=== PATIENT | male | born 1950 | race African-American/Black ===

== ENCOUNTER 2019-04-01 12:24 | Inpatient (IN) | payer OTHER, SELFPAY ==
[2019-04-01] VITALS (9 sets, daily range): BP systolic 168–241; BP diastolic 68–111; PULSE 52–85; RESP 15–20; TEMP 36.6–37.7; O2SAT 99–100; BMI 25.2
--- NOTE | ~2019-04-01 | US_ITS ---
EXAMINATION: US carotid duplex BI DATE: 04/02/2019 08:22 INDICATION: Vertigo. Possible seizure 2 weeks ago. Old posterior left parietal occipital infarct on C T examination. TECHNIQUE: Grayscale, color Doppler, and pulsed Doppler images of the cervical carotid arteries were obtained. The degree of vessel stenosis is placed in one of the following categories: normal, <50%, 5 0-69%, >=70% but less than near-occlusion, near-occlusion, or total occlusion. Note that percent sten osis relative to normal distal artery lumen diameter is indirectly measured from velocity measurement s as described by Zak, et al. Radiology 2003; [id number]:[id number]. COMPARISON: None. FINDINGS: RIGHT: The right common carotid artery (CCA) peak systolic velocity (PSV) is 111.3 cm/s. The right internal carotid artery (ICA) PSV is 102.8 cm/s. The right ICA end-diastolic velocity (EDV) is 34.2 cm/s. The right ICA/CCA PSV ratio is 0.9. Grayscale and color Doppler images yield an estimate of 0% diameter r eduction from plaque in the ICA. The external carotid artery (ECA) PSV is 107.6 cm/s. There is antegr haroon flow in the right vertebral artery. LEFT: The left CCA PSV is 116.1 cm/s. The left ICA PSV is 76.7 cm/s. The left ICA EDV is 20.6 cm/s. The lef t ICA/CCA PSV ratio is 0.7. Grayscale and color Doppler images yield an estimate of 0% diameter reduc tion from plaque in the ICA. The ECA PSV is 114.3 cm/s. There is antegrade flow in the left vertebral artery. IMPRESSION: 1. No stenosis in the right internal carotid artery. 2. No stenosis in the left internal carotid artery. Reviewed, dictated and finalized at [facility]. Reviewed, dictated and finalized at location [facility]. TH CARE LIAISON
--- NOTE | ~2019-04-01 | CT_ITS ---
EXAMINATION: CT brain wo con DATE: 04/01/2019 13:12 INDICATION: Recent syncope or seizure. Severe hypertension. TECHNIQUE: Computed tomography (CT) of the head was performed without intravenous contrast. The mA wa s adjusted according to patient size. Iterative reconstruction technique was employed. Exam dose: 60 5.33 mGy-cm total exam DLP. COMPARISON: None FINDINGS: There is focal encephalomalacia in the posterior left parietal-occipital area, likely due t o old infarct. There is nonspecific patchy diminished attenuation of the subcortical and periventricular cerebral wh ite matter, likely due to chronic small vessel ischemic changes. Bilateral carotid siphon internal ca rotid artery calcifications are present. No intracranial mass lesion or hemorrhage or recent cerebrovascular accident is evident. No midline s hifts or mass effects. No subdural or epidural hematoma. The orbits are unremarkable except for evidence of an old blowout fracture of the medial wall of the left orbit. There is patchy opacification right ethmoid air cells. The included paranasal sinuses and the mastoid air cells are otherwise unremarkable. No fracture or bone destruction of the cranial vault.. 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 Reviewed, dictated and finalized at [facility]. Reviewed, dictated and finalized at location [facility]. ASSEMBLY WORKER IMPRESSION: Old posterior left parietal occipital infarct Chronic small vessel ischemic changes of the cerebral white matter, cerebral at herosclerosis.
--- NOTE | ~2019-04-01 | US_ITS ---
EXAMINATION: US retroperitoneal duplex ltd EXAM DATE: 04/04/2019 09:57 INDICATION: Uncontrolled hypertension. TECHNIQUE: Multiple grayscale and Doppler images of the kidneys and renal arteries were obtained. T here is no prior study for comparison. FINDINGS: Right kidney measures 10.4 x 5.5 x 5.9 cm, the left measuring 10.7 x 5.4 x 7.1. No hydronep hrosis. The aorta peak systolic velocity is 127 cm/s. The right renal artery peak systolic velocity is 102 cm /s in the proximal segment, 89 cm/s in the mid segment, and 51 cm/s in the distal segment. The left r enal artery peak systolic velocity is 94 cm/s in the proximal segment, 108 cm/s in the mid segment, a nd 93 cm/s in the distal segment. IMPRESSION: 1. Renal artery Doppler velocities within normal limits. Reviewed, dictated and finalized at location [facility]. MANAGEMENT DIRECTOR
--- NOTE | ~2019-04-01 | XR_ITS ---
XR chest 2V DATE: 04/01/2019 13:15 INDICATION: Dizziness. Hypertension. Weight loss. TECHNIQUE: PA and lateral views COMPARISON: None FINDINGS: Normal heart size. There is aortic calcification and mild unfolding. No hilar or mediastina l enlargement. No pulmonary infiltrate or consolidation, pleural effusion or pulmonary vascular congestion or pneumo thorax. Diffuse idiopathic skeletal hyperostosis of the thoracic spine. IMPRESSION: No active cardiopulmonary disease Aortic atherosclerosis Reviewed, dictated and finalized at location [facility]. ER ROLLER GRINDER OPERATOR
--- NOTE | ~2019-04-01 | MR_ITS ---
EXAMINATION: MR brain/brain stem wo/w con DATE: 04/02/2019 08:13 INDICATION: Vertigo. Chronic stroke. Seizure 2 weeks prior. TECHNIQUE: Magnetic resonance imaging (MRI) of the brain and brainstem was performed without and with 15 mL Multihance intravenous contrast. Sequences included sagittal and axial T1-weighted SE, axial d iffusion-weighted FS SE, axial T2*-weighted GRE, axial T2-weighted FLAIR, and axial T2-weighted FSE. Postcontrast axial and coronal T1-weighted SE was obtained. Apparent diffusion coefficient (ADC) maps were created. COMPARISON: CT dated 04/01/2019 FINDINGS: There are no areas of restricted diffusion to suggest acute infarction. Small to moderate sized regio n of encephalomalacia in the left parieto-occipital region consistent with chronic infarct. Small old lacunar infarcts at the left side of the caron and a couple in the left frontal lobe white matter. No intracranial hemorrhage or abnormal intracranial mass lesion. There are scattered areas of nonspecif ic increased T2-weighted signal intensity in the cerebral white matter, predominantly involving the d eep and periventricular white matter. There are no intraparenchymal signal abnormalities seen on the other pulse sequences. The ventricles are symmetric and normal in size. There are no abnormal extra-a xial fluid collections. Flow voids are seen in the cerebral arteries on the T2-weighted sequences con sistent with their expected patency. Prominent mucosal thickening in the right ethmoid sinuses. Mild mucosal thickening in the left maxillary sinus. Visualized orbits and soft tissues are unremarkable. There are no areas of abnormal enhancement on the post contrast images. IMPRESSION: 1. No acute intracranial process. 2. Small to moderate-sized chronic infarct in the left parieto-occipital region. 2. Three smaller old lacunar infarcts, one in the left caron and 2 in the left frontal white matter. 3. Mild to moderate scattered periventricular predominant white matter T2 hyperintensity consistent w ith chronic small vessel ischemic disease. Reviewed, dictated and finalized at location [facility]. AND STEEL WORK SUPERVISOR IMPRESSION: 1. No acute intracranial process. 2. Small to moderate-sized chronic infarct in the left parieto-occipital region . 2. Three smaller old lacunar infarcts, one in the left caron and 2 in the left f rontal white matter. 3. Mild to moderate scattered periventricular predominant white matter T2 hyper intensity consistent with chronic small vessel ischemic disease.
--- NOTE | 2019-04-01 12:37 | ED.DIZZY ---
HPI - Dizziness General Chief Complaint: Dizziness Stated Complaint: dizziness Time Seen by Provider: 04/01/19 12:37 Source: patient, family and RN notes reviewed Mode of arrival: other Limitations: other (poor historian) History of Present Illness HPI Narrative: Pt is a 68 y/o male who presents to the ED with c/o mild intermittent dizziness that began a few weeks ago. Pt's family reports the pt had two possible seizures two weeks ago. Pt's family notes that EMS arrived to the scene, but did not take him because he was responsive. Pt lives by himself so the episodes were not witnessed. Pt is unable to recall the episodes. He notes that he has not seen his PCP in over a year. Pt also reports a HILLS, recent weight loss, and weakness in his RUE, but denies a cough, SOB, CP, numbness, ABD pain, diarrhea, poor appetite, dysuria, generalized swelling, an unsteady gait, and changes in his vision. HPI is limited due to pt being a poor historian. MD elicited complaint: dizziness Onset (ago): week(s) (2) Timing: intermittent Severity: mild Associated symptoms: other (headache, recent weight loss) Associated neuro symptoms: limb weakness (RUE) and other (possible seizures) Related Data Home Medications Medication Instructions Recorded Confirmed No Home Medications 04/01/19 04/01/19 Allergies Allergy/AdvReac Type Severity Reaction Status Date / Time No Known Allergies Allergy Verified 04/01/19 12:33 Review of Systems Review of Systems: ROS unobtainable: other (limited due to being being a poor historian) Constitutional: Constitutional: Denies poor appetite and Reports weight loss (recent) Eyes: Eyes: Denies change in vision Cardiovascular: Cardiovascular: Denies chest pain and Denies edema Respiratory: Respiratory: Denies cough and Denies dyspnea Gastrointestinal: Gastrointestinal: Denies abdominal pain and Denies diarrhea Genitourinary: Genitourinary: Denies dysuria Neurologic: Reports dizziness (intermittent), Reports headache(s), Denies numbness, Reports seizure-like activity (possible), Reports weakness (in his RUE) and Denies other (an unsteady gait) PMF Past Medical History Medical History (Updated 04/01/19 @ 15:23 by Shahriar Greenwood MD) Medical history unknown Surgical History Surgical History (Updated 04/01/19 @ 12:54 by Belle Malone) Surgical history unknown Social History Social History (Updated 04/01/19 @ 12:54 by Belle Malone) Smoking status: Never smoker Alcohol intake: current Substance use: current Substance use type: marijuana Other substance usage details: Pt notes that he smokes Marijuana every other day. Gender identity (if verbalized by the patient): Male Exam Const: General: healthy appearing, no acute distress and well developed Nutritional Appearance: well nourished Orientation/consciousness: patient oriented x3 (alert) and Other orientation findings (Alert) Limitations: no limitations HENMT: Head: normocephalic and atraumatic Ears: external ears normal General nose exam: No nasal discharge present and no epistaxis Face and sinus: face symmetric Mouth: Yes lip normal, Yes tongue normal and Yes moist mucous membranes Throat: other (No exudate, no erythema) Eyes: Conjunctivae: conjunctivae normal Sclera: sclerae normal EOM: EOMs intact bilaterally Direct Ophthalmoscopy: retinal abnormality bilateral (hypertensive changes) Neck: Neck: full ROM, no lymphadenopathy and supple Thyroid: thyroid normal Resp: Effort & Inspection: normal respiratory effort Auscultation: clear to auscultation bilaterally, no rales, no rhonchi, no wheezes and other (breath sounds equal) Cardio: Rate: regular rate Rhythm: regular rhythm Heart sounds: no gallops and no murmurs GI: Inspection: non-distended GI Palp: No abdominal tenderness and Yes Soft to palpation Auscultation: other (bowel sounds present) : General: Yes no CVA tenderness Back/Spine/Pelvis: Back: no CVA
--- NOTE | 2019-04-01 13:46 | ECG_ITS ---
Measurements Intervals [place] Rate: 55 P: 53 AL: 157 QRS: -8 QRSD: 98 T: 17 QT: 453 QTc: 436 Interpretive Statements SINUS BRADYCARDIA VOLTAGE CRITERIA FOR LVH NONSPECIFIC ST & T-WAVE ABNORMALITY- INF/LAT LEADS BASELINE WANDER- I, II, AVR, AVL, AVF BORDERLINE ECG Electronically Signed On 04-01-2019 19:01:47 MOBILE APPLICATION DEVELOPMENT LEAD by Dinesh Herrera D.O.
[2019-04-01 13:47] LABS: Basophils Percent Auto 0.6 % (0.2-1.2); Eosinophils Absolute Auto 0.1 K/mm3 (0-0.3); Hematocrit 34.1 % (42.0-52.0); Hemoglobin 10.8 g/dL (14.0-18.0); Immature Granulocyte Absolute 0.02 K/mm3 (0.00-0.031); Immature Granulocyte Percent A 0.3 % (0-0.5); Lymphocytes Absolute Auto 2.66 K/mm3 (0.9-3.2); Lymphocytes Percent Auto 39.4 % (18.3-44.2); Mean Corpuscular HGB Conc 31.7 g/dl (32-36); Mean Corpuscular Hemoglobin 21.7 pg (26-34); Mean Corpuscular Volume 68.5 fl (80-100); Mean Platelet Volume 10.4 fl (7.4-10.4); Monocytes Absolute Auto 0.6 K/mm3 (0.1-0.6); Monocytes Percent Auto 8.6 % (2.6-8.5); Neutrophils Absolute Auto 3.4 K/mm3 (1.3-6.7); Neutrophils Percent Auto 50.1 % (45.5-73.1); Platelet Count Result 295 k/mm3 (150-375); Red Blood Count 4.98 M/mm3 (4.6-6.20); Red Cell Distribution Width 16.2 % (11.5-14.5); White Blood Count 6.8 K/mm3 (4.5-10.0)
[2019-04-01] MEDS: SODIUM CHLORIDE 0.9% IV 1,000 ML 100 ML IV CONT (13:47)
[2019-04-01] MEDS: LABETALOL HCL INJ 100 MG/20 ML VIAL 20 MG IV PUSH (13:47)
[2019-04-01] MEDS: hydrALAZINE HCL 20 MG/ML VIAL IV PUSH (13:55)
[2019-04-01 13:59] LABS: Alanine Aminotransferase 13 U/L (4-50); Albumin Level 4.9 g/dL (3.5-5.1); Alkaline Phosphatase 66 U/L (38-126); Aspartate Amino Transferase 26 U/L (17-59); Bilirubin,Total 0.5 mg/dL (0.2-1.3); Blood Urea Nitrogen 14 mg/dL (9-20); Calcium 9.9 mg/dL (8.4-10.2); Carbon Dioxide 26 mmol/L (22-30); Chloride 99 mmol/L (98-107); Estimated Glomerular Filt Rate > 60; Glucose 75 mg/dL (75-110); Magnesium 2.2 mg/dL (1.6-2.3); Potassium 3.5 mmol/L (3.4-5.0); Sodium 142 mmol/L (137-145)
[2019-04-01 14:04] LABS: Add Urine Microscopic? YES; Amorphous Sediment Urine Few; Appearance Urine Cloudy (Clear); Bacteria Urine Trace /hpf; Bilirubin Urine Negative (Negative); Blood Urine 2+ (Negative); Color Urine Straw (Yellow); Glucose Urine UA Negative (Negative); Ketones Urine Negative (Negative); Leukocyte Esterase Ur 3+ LEU/UL (Negative); Mucus Urine Rare /lpf; Nitrate Urine Negative (Negative); Protein Urine Negative (Negative); Specific Grav Ur 1.003 (1.001-1.035); Urobilinogen Urine Negative mg/dL (<2.0); WBC Urine 31-50 /hpf
[2019-04-01 14:10] LABS: Troponin I 0.016 ng/mL (0.000-0.034)
--- NOTE | 2019-04-01 15:30 | PM.IMHP ---
H&P: HPI History of Present Illness Chief complaint: Intermittent headache and dizziness. Narrative: Nima Travis Jr. is a very pleasant 68-year-old male with a history of TIA many years ago who presented to the emergency department earlier this afternoon via private vehicle from home for evaluation of intermittent headache and dizziness for the past 3 weeks. He has not seen a physician for over a year and a half, and to his knowledge does not have any significant medical problems. It was his daughter that encouraged him to come in today for evaluation today given the constellation of findings that were concerning to her. For the last several weeks he has had intermittent right upper extremity numbness that is typically fleeting in nature, and is not associated with weakness. He has also had occasional diffuse headaches and mild vertigo. Additionally, a couple of weeks ago he was at a friend's house and she apparently witnessed him having 2 seizures, but that cannot be confirmed. The patient does not recall any details with regards to that and has no history of seizure disorder. Daughter is also concerned that the patient has loss obtain little over 20 pounds in the past 1 month, unintentionally. He has never had a colonoscopy and denies constipation and straining with bowel movements, but has noted a small amount of blood in his stool on occasion. To his knowledge she has never had an elevated PSA level. On arrival to the emergency department his blood pressure was 241/111 and besides a mild headache he had no symptoms with that. He specifically denies chest pain, shortness of breath, severe headache, and visual changes. No focal weakness or paresthesias at this time. No speech disturbances (patient has stuttered 4 years and this is unchanged) or facial asymmetry. He denies chest pain, palpitations, and racing heart. Review of Systems Review of Systems: Narrative: Twelve systems were reviewed with pertinent positives and negatives as per HPI. No fever, chills, or sweats. No acute auditory or visual changes. He denies neck ache. No recent cold or flu symptoms. He denies exertional chest pain shortness of breath. No nausea, vomiting, or diarrhea. No dysuria or hematuria. He does have symptoms of BPH including decreased stream and nocturia. Except as documented, all other systems were reviewed and are negative. 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 TIA (transient ischemic attack) Surgical History Surgical History (Updated 04/01/19 @ 18:56 by Zeina Flores PA-C) No significant past surgical history Family History Family History (Updated 04/01/19 @ 18:56 by Zeina Flores PA-C) Other Acute myocardial infarction Diabetes mellitus Heart disease Hypertension Social History Social History (Updated 04/01/19 @ 18:58 by Zeina Flores PA-C) Social History: The patient lives in [place], [place] with several family members. He has 5 children. he is retired and used to work at the [employer] and at this [employer]. He is very active, and enjoys walking which he does most days. He designates his daughter, Nando Fernandez, as his surrogate decision maker and he wishes to be a full code. He is a lifelong nonsmoker. He drinks alcohol socially and in moderation. He smokes marijuana several times a week. Spiritual care concerns: No Agree to blood products: Yes Meds Home Medications and Allergies Home Medications Medication Instructions Recorded Confirmed Type No Home Medications 04/01/19 04/01/19 History Allergies Allergy/AdvReac Type Severity Reaction Status Date / Time No Known Allergies Allergy Verified 04/01/19 12:33 Vital Signs Vital Signs - 24 hr 04/01/19 12:30 04/01/19 13:51 04/01/19 14:45 [place]
[2019-04-01] MEDS: AMLODIPINE BESYLATE 5 MG TABLET PO (15:39)
[2019-04-01] MEDS: hydrALAZINE HCL 20 MG/ML VIAL 10 MG IV PUSH ×2 (16:08→22:56)
--- NOTE | 2019-04-01 16:22 | ADMGEN ---
This patient, Nima Travis Jr., was admitted to 3 Med Surg Room 314-01. @ 1645 Patient/family oriented to hospital policies and general routines including ID bracelet, bed and alarms, visiting hours, pain management, procedures, bathroom and other care routines, personal items, smoking policy, room service/diet, and visiting hours. Valuables list has been completed. Information on how to activate the Rapid Response Team has been discussed. Patient/Family are encouraged to report perceived risks to care and to ask questions if they do not understand what they are told or what they should do.
[2019-04-01] MEDS: LACTATED RINGERS 1,000 ML 60 ML IV CONT (17:06)
[2019-04-01] MEDS: ACETAMINOPHEN 325 MG TABLET 650 MG PO (20:03)
[2019-04-01 20:27] LABS: Iron 52 ug/dL (49-181)
[2019-04-01 20:28] LABS: IFOB Positive Control Positive; Immunochemical Fecal Occult Bl Negative (N)
[2019-04-01 20:50] LABS: Percent Iron Saturation 18 % (20-50)
[2019-04-01 21:12] LABS: Prostate Specific Antigen 2.8 ng/mL (< OR = 4.0)
[2019-04-01 21:49] LABS: Folic Acid 7.5 ng/mL (2.76->20)
[2019-04-02] VITALS (14 sets, daily range): BP systolic 117–214; BP diastolic 56–92; PULSE 62–87; RESP 16–18; TEMP 36.7–37.5; O2SAT 97–100
[2019-04-02] MEDS: hydrALAZINE HCL 20 MG/ML VIAL 10 MG IV PUSH ×2 (06:02→12:05)
[2019-04-02] MEDS: ACETAMINOPHEN 325 MG TABLET 650 MG PO ×4 (06:04→20:48)
[2019-04-02 06:35] LABS: Hematocrit 30.3 % (42.0-52.0); Hemoglobin 9.6 g/dL (14.0-18.0); Mean Corpuscular HGB Conc 31.7 g/dl (32-36); Mean Corpuscular Hemoglobin 21.4 pg (26-34); Mean Corpuscular Volume 67.6 fl (80-100); Mean Platelet Volume 10.3 fl (7.4-10.4); Platelet Count Result 259 k/mm3 (150-375); Red Blood Count 4.48 M/mm3 (4.6-6.20); Red Cell Distribution Width 15.9 % (11.5-14.5); White Blood Count 8.1 K/mm3 (4.5-10.0)
[2019-04-02 06:41] LABS: Cholesterol 173 mg/dL (0-200); HDL Direct 38 mg/dL; Triglycerides 101 mg/dL (<150)
[2019-04-02 06:47] LABS: Blood Urea Nitrogen 12 mg/dL (9-20); Calcium 9.4 mg/dL (8.4-10.2); Carbon Dioxide 27 mmol/L (22-30); Chloride 104 mmol/L (98-107); Estimated CRCL calculation 52 ml/min; Estimated Glomerular Filt Rate > 60; Glucose 100 mg/dL (75-110); Potassium 3.5 mmol/L (3.4-5.0); Sodium 140 mmol/L (137-145)
[2019-04-02 06:52] LABS: LDL Cholesterol Direct 111 mg/dL
[2019-04-02] MEDS: ONDANSETRON INJ 4 MG/2 ML VIAL IV PUSH (07:23)
[2019-04-02] MEDS: AMLODIPINE BESYLATE 5 MG TABLET PO (09:18)
[2019-04-02] MEDS: hydroCHLOROthiazide 25 MG TABLET PO (09:18)
[2019-04-02] MEDS: TAMSULOSIN HCL 0.4 MG CAPSULE PO (09:18)
[2019-04-02] MEDS: ASPIRIN 81 MG ENTERIC TABLET PO (09:18)
--- NOTE | 2019-04-02 17:54 | PM.IMPN ---
Progress Note: A&P Assessment and Plan (1) Microcytic anemia: Code(s): D50.9 - Iron deficiency anemia, unspecified Status: Acute Assessment and Plan: -----patient's hemoglobin appears stable and his Ifob was negative. Iron studies were reviewed which look okay. He is, however, deficient in vitamin-D B12. This will be replaced. (2) Weight loss: Code(s): R63.4 - Abnormal weight loss Status: Acute Assessment and Plan: -----although the patient had a negative Ifob, I would still have him follow-up with GI to obtain a screening colonoscopy. I also recommend he follow-up with urology since he has asymptomatic hematuria. PSA is normal. (3) Vertigo: Code(s): R42 - Dizziness and giddiness Status: Acute Assessment and Plan: -----resolved. Likely due to uncontrolled hypertension. MRI noted with chronic strokes but nothing acute. The dizziness has improved since his blood pressure has improved. Carotids are normal. Continue aspirin and statin added. . (4) Hypertensive urgency: Code(s): I16.0 - Hypertensive urgency Status: Acute Assessment and Plan: -----patient was started on hydrochlorothiazide and amlodipine. He has been running high but since given these medications this morning his last blood pressure was 151/63. At this time I do not plan to adjust his medications further unless he continues to be high. He did however, require some hydralazine this morning. If he continues to be high tomorrow may consider increasing dosages of current medications but overall he has been improving. (5) Lower urinary tract symptoms: Code(s): R39.9 - Unspecified symptoms and signs involving the genitourinary system Status: Acute Assessment and Plan: -----should follow-up with urology as stated above.. PSA normal. UA shows 3+ leukocyte esterase and some blood. Urine culture is pending. Time Spent With Patient Time with patient: 25 - 35 minutes Subjective Date/time seen: 04/02/19 17:54 Interval history: Pt is a 68-year-old male here for dizziness and hypertension. Patient was seen today and states his dizziness has resolved. He said he has been walking to the bathroom and back and has not been dizzy. He does not have a headache. Pt denies nausea, vomiting, fevers, chills, constipation, diarrhea, chest pain, sob, or abdominal pain. Review of Systems Review of Systems: All systems reviewed & are unremarkable except as noted in HPI and below Exam Narrative: Exam Narrative: General: Well developed well nourished patient resting comfortably on the side of the bed in no acute distress HEENT: normocephalic Neck: supple Neuro: Alert and oriented x4. Chronic stutter. Cranial nerves 2-12 intact. Equal strength the upper lower extremities 5/5. Able to do [id number]. CV:RRR Resp:CTA Abd: Soft, non distended. No pain to palpation. Positive bowel sounds Extremities: No swelling, erythema, or pain to palpation. Objective Data Vital Signs Vital Signs: Vital Signs - 24 hr 04/01/19 20:00 04/01/19 21:45 04/01/19 23:25 Temperature 99.8 F H Pulse Rate 85 78 Respiratory Rate 18 Blood Pressure 194/74 H 168/68 H Pulse Oximetry 100 04/02/19 00:00 04/02/19 02:00 04/02/19 04:00 Temperature 99.1 F Pulse Rate 82 74 66 Respiratory Rate 18 Blood Pressure 170/81 H Pulse Oximetry 100 04/02/19 06:23 04/02/19 07:23 04/02/19 09:17 Temperature 98.7 F Pulse Rate 74 84 Respiratory Rate 16 Blood Pressure 214/88 H 180/92 H Pulse Oximetry 100 04/02/19 10:00 04/02/19 11:00 04/02/19 12:00 Temperature 98.4 F 98.5 F Pulse Rate 62 67 74 Respiratory Rate 16 16 Blood Pressure 188/77 H 186/82 H Pulse Oximetry 100 100 04/02/19 14:00 04/02/19 16:00 Temperature 99.5 F Pulse Rate 67 86 Respiratory Rate 16 Blood Pressure 151/63 H Pulse Oximetry 98 Intake/Output Intake/Output: Intake &
[2019-04-03] VITALS (10 sets, daily range): BP systolic 168–192; BP diastolic 79–85; PULSE 69–96; RESP 16–18; TEMP 36.6–37.2; O2SAT 99–100; BMI 25.2
--- NOTE | 2019-04-03 | ECHO_ITS ---
Patient Info Name: Nima Travis Age: 68 years : 1950 Gender: Male Ht: 72 in Wt: 186 lbs BSA: 2.08 m2 HR: 71 bpm BP: 168 / 82 mmHg Heart Rhythm: Sinus Rhythm Technical Quality: Good Exam Date: 04/03/2019 11:48 AM Exam Location: [facility] Pulmonary Patient Status: Inpatient Admit Date: 04/01/2019 Staff Ordering Physician: Robina Yousif PA-C Group Home Counselor: Dilma Ring RDCS Attending Provider: Robina Yousif PA-C Referring Physician: Benja TAVERAS; Exam Type: CA echo doppler color flow Study Info Indications I10 - Essential (primary) hypertension Complete two-dimensional, color flow and Doppler transthoracic echocardiogram is performed. Summary 1. Left ventricular systolic function is hyperdynamic, estimated at >70%. 2. There is mildly increased left ventricular wall thickness. 3. Left ventricular chamber dimension is mildly enlarged. 4. The left ventricular diastolic function is grade I diastolic dysfunction. 5. Left atrial chamber dimension is mildly enlarged. 6. Right atrial chamber dimension is mildly enlarged. 7. There is borderline aortic valve stenosis with a peak velocity of 288 cm/s, mean gradient of 17 mmHg, and aortic valve area of 2.0 cm2. Velocities elevated due to hyperdynamic LV systolic function. 8. There is mild aortic valve regurgitation. 9. There is mild mitral valve regurgitation. 10. There is mild tricuspid valve regurgitation. 11. Moderate pulmonary hypertension, estimated pulmonary arterial systolic pressure is 46 mmHg. Left Ventricle Left ventricular chamber dimension is mildly enlarged. Left ventricular systolic function is hyperdynamic, estimated at >70%. There is mildly increased left ventricular wall thickness. The left ventricular diastolic function is grade I diastolic dysfunction. Right Ventricle Right ventricular chamber dimension is normal. Right ventricular systolic function is normal. Left Atria Left atrial chamber dimension is mildly enlarged. Right Atria Right atrial chamber dimension is mildly enlarged. Aortic Valve The aortic valve is trileaflet. There is borderline aortic valve stenosis with a peak velocity of 288 cm/s, mean gradient of 17 mmHg, and aortic valve area of 2.0 cm2. Velocities elevated due to hyperdynamic LV systolic function. There is mild aortic valve regurgitation. There is mild aortic valve calcification. Pulmonic Valve The pulmonic valve is not well visualized. There is trace pulmonic regurgitation. Mitral Valve The mitral valve has normal leaflets. There is mild mitral valve regurgitation. The mitral valve annulus is mildly calcified. Tricuspid Valve The tricuspid valve leaflets are normal. There is mild tricuspid valve regurgitation. Moderate pulmonary hypertension, estimated pulmonary arterial systolic pressure is 46 mmHg. Pericardium/Pleural The pericardium appears normal. There is no pericardial effusion. Inferior Vena Cava Normal inferior vena cava with >50% collapse upon inspiration consistent with normal right atrial pressure, 5 mmHg. Aorta The aortic root size at the sinus of Valsalva is normal. There is mild aortic atherosclerosis. Left Ventricular Outflow Tract Name Value Normal LVOT 2D LVOT Diame
[2019-04-03 06:17] LABS: Hematocrit 30.3 % (42.0-52.0); Hemoglobin 9.8 g/dL (14.0-18.0)
[2019-04-03] MEDS: hydroCHLOROthiazide 25 MG TABLET PO (08:16)
[2019-04-03] MEDS: ATORVASTATIN 20 MG TABLET PO (08:16)
[2019-04-03] MEDS: TAMSULOSIN HCL 0.4 MG CAPSULE PO (08:16)
[2019-04-03] MEDS: CYANOCOBALAMIN 1,000 MCG TABLET 1000 MCG PO (08:16)
[2019-04-03] MEDS: AMLODIPINE BESYLATE 5 MG TABLET PO ×2 (08:17→13:31)
[2019-04-03] MEDS: ASPIRIN 81 MG ENTERIC TABLET PO (08:17)
[2019-04-03 09:34] LABS: Magnesium 2.1 mg/dL (1.6-2.3)
[2019-04-03] MEDS: hydrALAZINE HCL 20 MG/ML VIAL 10 MG IV PUSH ×2 (10:52→22:01)
--- NOTE | 2019-04-03 15:28 | PM.IMPN ---
Progress Note: A&P Assessment and Plan (1) Hypertensive urgency: Code(s): I16.0 - Hypertensive urgency Status: Acute Assessment and Plan: -----patient was started on hydrochlorothiazide 25mg and amlodipine 5mg. His BP has been labile and hard to control. He gets dizzy with these blood pressures. Today he was still uncontrolled so his norvasc was increased to 10mg daily. may consider BB--see below. Will order doppler u/s of kidneys to r/u ANG. Consider pheochromocytoma w/u. (2) Microcytic anemia: Code(s): D50.9 - Iron deficiency anemia, unspecified Status: Acute Assessment and Plan: -----patient's hemoglobin appears stable and his Ifob was negative. Iron studies were reviewed which look okay. He is, however, deficient in vitamin- B12. This will be replaced. (3) Weight loss: Code(s): R63.4 - Abnormal weight loss Status: Acute Assessment and Plan: -----although the patient had a negative Ifob, I would still have him follow-up with GI to obtain a screening colonoscopy. I also recommend he follow-up with urology since he has asymptomatic hematuria. PSA is normal. (4) Vertigo: Code(s): R42 - Dizziness and giddiness Status: Acute Assessment and Plan: -----comes and goes. Pt has significant murmur--will await echo. Could be d/t valve disease, uncontrolled htn, trigeminy, CHF? Awaiting echo. Likely due to uncontrolled hypertension. MRI noted with chronic strokes but nothing acute. Pt will need aspirin at discharge. Carotids are normal. Continue aspirin and statin added. . (5) Lower urinary tract symptoms: Code(s): R39.9 - Unspecified symptoms and signs involving the genitourinary system Status: Acute Assessment and Plan: -----should follow-up with urology as stated above.. PSA normal. UA shows 3+ leukocyte esterase and some blood. Urine culture negative for infx. (6) Ventricular trigeminy: Code(s): I49.8 - Other specified cardiac arrhythmias Status: Acute Assessment and Plan: -----noted on tele today. mag normal. asymptomatic but dizziness could be the trigeminy. Awaiting echo--may consider BB to help with BP and PVCs. Will await EF. metoprolol vs coreg. Subjective Date/time seen: 04/03/19 15:28 Interval history: Pt is a 68-year-old male here for dizziness and hypertension. Patient was seen today and states that he is still dizzy every once in awhile. He says this has been going on for 3 weeks but has been getting less and less. Pt denies nausea, vomiting, fevers, chills, constipation, diarrhea, chest pain, sob, or abdominal pain. Exam Narrative: Exam Narrative: General: Well developed well nourished patient resting comfortably in bed in no acute distress HEENT: normocephalic Neck: supple Neuro: Alert and oriented x4. Chronic stutter. Cranial nerves 2-12 intact. Equal strength the upper lower extremities 5/5. Able to do [id number]. CV:RRR today with harsh 3/6 murmur at the right ICS. Trigemity noted on tele Resp:CTA Abd: Soft, non distended. No pain to palpation. Positive bowel sounds Extremities: No swelling, erythema, or pain to palpation. Objective Data Vital Signs Vital Signs: Vital Signs - 24 hr 04/02/19 16:00 04/02/19 18:00 04/02/19 20:00 Temperature 98.0 F Pulse Rate 86 85 87 Respiratory Rate 16 Blood Pressure 117/56 L Pulse Oximetry 98 04/02/19 22:00 04/03/19 00:00 04/03/19 04:00 Temperature 98.5 F Pulse Rate 73 85 71 Respiratory Rate 18 Blood Pressure 152/72 H Pulse Oximetry 97 04/03/19 06:00 04/03/19 08:00 04/03/19 10:00 Temperature 98.5 F Pulse Rate 71 69 73 Respiratory Rate 18 16 Blood Pressure 168/82 H 192/83 H Pulse Oximetry 99 100 04/03/19 12:00 04/03/19 14:00 Temperature 97.9 F Pulse Rate 79 82 Respiratory Rate 16 Blood Pressure 181/79 H Pulse Oximetry 100 Intake/Output Intake/Output:
[2019-04-04] VITALS (12 sets, daily range): BP systolic 147–162; BP diastolic 57–76; PULSE 65–101; RESP 16–18; TEMP 36.8–37.6; O2SAT 98–100
[2019-04-04 06:39] LABS: Blood Urea Nitrogen 18 mg/dL (9-20); Calcium 9.8 mg/dL (8.4-10.2); Carbon Dioxide 26 mmol/L (22-30); Chloride 99 mmol/L (98-107); Estimated CRCL calculation 52 ml/min; Estimated Glomerular Filt Rate > 60; Glucose 101 mg/dL (75-110); Potassium 3.8 mmol/L (3.4-5.0); Sodium 138 mmol/L (137-145)
[2019-04-04] MEDS: ASPIRIN 81 MG ENTERIC TABLET PO (10:52)
[2019-04-04] MEDS: hydroCHLOROthiazide 25 MG TABLET PO (10:52)
[2019-04-04] MEDS: AMLODIPINE BESYLATE 5 MG TABLET 10 MG PO (10:52)
[2019-04-04] MEDS: CYANOCOBALAMIN 1,000 MCG TABLET 1000 MCG PO (10:52)
[2019-04-04] MEDS: ATORVASTATIN 20 MG TABLET PO (10:52)
[2019-04-04] MEDS: TAMSULOSIN HCL 0.4 MG CAPSULE PO (10:53)
[2019-04-04] MEDS: ACETAMINOPHEN 325 MG TABLET 650 MG PO (10:57)
[2019-04-04] MEDS: METOPROLOL TARTRATE 12.5 MG TABLET PO ×2 (13:31→23:10)
--- NOTE | 2019-04-04 16:19 | PM.IMPN ---
Progress Note: A&P Assessment and Plan (1) Hypertensive urgency: Code(s): I16.0 - Hypertensive urgency Status: Acute Assessment and Plan: BPs elevated but improved today with new addition of metoprolol. His home norvasc was increased yesterday. Dizziness improved. Hopeful for discharge tomorrow if BP responds well. Ultrasound shows no evidence of renal artery stenosis today. (2) Microcytic anemia: Code(s): D50.9 - Iron deficiency anemia, unspecified Status: Acute Assessment and Plan: Continue vitamin B12 replacement. H&H low but stable. No evidence of acute bleeding. Stool occult blood negative. Recommend follow up with PCP to arrange screening colonoscopy after discharge. (3) Vertigo: Code(s): R42 - Dizziness and giddiness Status: Acute Assessment and Plan: Stable today. BPPV vs. trigeminy could contribute. MRI brain shows old CVAs, ASA and statin recommended at discharge. Carotid dopplers are within normal limits. (4) Hematuria: Qualifiers: Hematuria type: unspecified type Qualified Code(s): R31.9 - Hematuria, unspecified Code(s): R31.9 - Hematuria, unspecified Status: Acute Assessment and Plan: Outpatient urology follow up recommended due to asymptomatic hematuria. PSA is normal. (5) Ventricular trigeminy: Code(s): I49.8 - Other specified cardiac arrhythmias Status: Acute Assessment and Plan: Noted on telemetry. Metoprolol added to regimen today. Echocardiogram results noted. Subjective Date/time seen: 04/04/19 1100 Interval history: Mr. Travis is a 68yo M here for dizziness and hypertensive urgency. He reports ongoing dizziness over the last few weeks but is feeling well today. He denies chest pain or shortness of breath. He is tolerating PO intake without nausea or vomiting. Review of Systems Review of Systems: Narrative: Twelve systems were reviewed with pertinent positives and negatives as per HPI. Exam Narrative: Exam Narrative: General: Male resting supine in bed in no acute distress. HEENT: Normocephalic, EOMI, oral mucosa moist. Cardiovascular: Rate and rhythm regular. Systolic murmur heard over left sternal border. Respiratory: Clear to auscultation. Nonlabored breathing. Abdomen: Soft, non-tender, non-distended, bowel sounds present. Extremities: Peripheral pulses intact. No edema or pain to palpation. Neuro: Alert and oriented. Speech is clear. No focal neurological deficits noted. Objective Data Vital Signs Vital Signs: Last Vital Signs Temp 99.7 F H 04/04/19 06:00 Pulse 84 04/04/19 13:31 Resp 18 04/04/19 06:00 BP 162/66 H 04/04/19 06:00 Pulse Ox 99 04/04/19 06:00 Intake/Output Intake/Output: Intake & Output 04/01/19 04/02/19 04/03/19 04/04/19 23:59 23:59 23:59 23:59 Intake Total 1300 1481 1590 380 Output Total 925 1200 800 650 Balance 375 281 790 -270 Meds/Results Medications: Active Medications Generic Name Dose Route Start Last Admin Trade Name Freq PRN Reason Stop Dose Admin Acetaminophen 650 mg 04/01/19 15:23 04/04/19 10:57 Tylenol Tablet PO 650 mg Q4H PRN Administration Mild Pain (1-3) or Fever Amlodipine Besylate 10 mg 04/03/19 11:44 04/04/19 10:52 Norvasc PO 10 mg QAM TOSHA Administration Aspirin 81 mg 04/02/19 09:00 04/04/19 10:52 Aspirin Ec PO 81 mg QAM TOSHA Administration Atorvastatin Calcium 20 mg 04/03/19 09:00 04/04/19 10:52 Lipitor PO 20 mg DAILY TOSHA Administration Cyanocobalamin 1,000 mcg 04/03/19 09:00 04/04/19 10:52 Vitamin B-12 Tab PO 1,000 mcg QAM TOSHA Administration Hydralazine HCl 10 mg 04/03/19 10:43 04/03/19 22:01 Apresoline Hcl Inj IV PUSH 10 mg Q8H PRN Administration systolic >175 Hydrochlorot
[2019-04-05] VITALS (8 sets, daily range): BP systolic 122–157; BP diastolic 63–83; PULSE 55–60; RESP 16–18; TEMP 37.1–37.6; O2SAT 99–100
[2019-04-05] MEDS: hydroCHLOROthiazide 25 MG TABLET PO (09:21)
[2019-04-05] MEDS: ASPIRIN 81 MG ENTERIC TABLET PO (09:21)
[2019-04-05] MEDS: CYANOCOBALAMIN 1,000 MCG TABLET 1000 MCG PO (09:21)
[2019-04-05] MEDS: METOPROLOL TARTRATE 12.5 MG TABLET PO (09:21)
[2019-04-05] MEDS: AMLODIPINE BESYLATE 5 MG TABLET 10 MG PO (09:21)
[2019-04-05] MEDS: TAMSULOSIN HCL 0.4 MG CAPSULE PO (09:21)
[2019-04-05] MEDS: ATORVASTATIN 20 MG TABLET PO (09:21)
--- NOTE | 2019-04-05 20:02 | PM.DS ---
DS: Diagnosis Admitting Diagnosis Admitting Diagnosis: Iron deficiency anemia, unspecified Discharge Diagnosis (1) Hypertensive urgency: Code(s): I16.0 - Hypertensive urgency Status: Acute Assessment and Plan: Date of Service 04/05/19: Mr. Travis is a 68yo M with history of TIA many presented to the emergency for evaluation of intermittent headache and dizziness the last 3 weeks prior to admission. He noted that he had not seen a medical provider in the last couple years and to his knowledge did not have any significant medical problems. Arrival to the ED, his blood pressure was 241/111 with which he was asymptomatic other than mild headache. Routine labs were grossly normal aside from a microcytic anemia. With IV labetalol and hydralazine in the ED and transition to oral antihypertensives with hydrochlorothiazide and amlodipine. Was still having elevated blood pressures with systolics in the 170s with hydrochlorothiazide and amlodipine, and ventricular trigeminy was noted on telemetry so metoprolol tartrate was added as well. His blood pressure responded well to this regimen he will be discharged with same. He was instructed on the importance of establishing care with a primary care provider to manage his hypertension. He was additionally started on baby aspirin daily and atorvastatin. He was experience some urinary retention and was started on tamsulosin, which he tolerated well. His dizziness improved with better control of his blood pressure. Renal artery ultrasound was performed and showed no evidence of renal artery stenosis. His blood pressures were much improved and stable at time of discharge on his new oral antihypertensive regimen and he was hemodynamically stable for discharge on 04/05; instructed to follow-up with the primary care provider within 1 week. He also noted that he had lost weight recently and is recommended that he obtain an outpatient screening colonoscopy. He was noted to have some hematuria as well, urine culture was negative, and he was informed that he may benefit from urology referral as an outpatient if symptoms continue. (2) Microcytic anemia: Code(s): D50.9 - Iron deficiency anemia, unspecified Status: Acute Assessment and Plan: Vitamin B12 on the lower end of normal and replaced. H&H remained low but stable. No evidence of acute bleeding. Stool occult blood negative. Recommend follow up with PCP to arrange screening colonoscopy after discharge. (3) Vertigo: Code(s): R42 - Dizziness and giddiness Status: Acute Assessment and Plan: Improved prior to discharge.. BPPV vs. trigeminy could contribute. MRI brain shows old CVAs, ASA and statin recommended at discharge. Carotid dopplers are within normal limits. (4) Hematuria: Qualifiers: Hematuria type: unspecified type Qualified Code(s): R31.9 - Hematuria, unspecified Code(s): R31.9 - Hematuria, unspecified Status: Acute Assessment and Plan: Outpatient urology follow up recommended due to asymptomatic hematuria. PSA is normal. (5) Ventricular trigeminy: Code(s): I49.8 - Other specified cardiac arrhythmias Status: Acute Assessment and Plan: Noted on telemetry. Metoprolol added to regimen prior to discharge which he tolerated well. Echocardiogram results noted below. DS: Summary Hospital Course Reason for hospitalization: Hypertensive urgency Time Spent with Patient Time attestation: Total time spent providing and/or coordinating discharge services: 35 minutes Exam Narrative: Exam Narrative: General: Male resting supine in bed in no acute distress. HEENT: Normocephalic, EOMI,PERRL, oral mucosa moist. Cardiovascular: Rate and rhythm regular. Systolic murmur heard over left sternal border. Respir
== END 2019-04-05 13:35 | disposition home or self-care (01) | DRG 305 ==
LOC: ANHED 15:35 → ANH3MEDSUR 16:20
PROVIDERS: Physician Assistant; Admitting Provider Internal Medicine; Emergency Provider Emergency Medicine; Visit Provider Internal Medicine
DX: I16.0 Hypertensive urgency (principal); D50.9 Iron deficiency anemia, unspecified; R63.4 Abnormal weight loss; I10 Essential (primary) hypertension; R42 Dizziness and giddiness; N40.0 Benign prostatic hyperplasia without lower urinary tract symptoms; R00.8 Other abnormalities of heart beat; R31.9 Hematuria, unspecified; Z86.73 Personal history of transient ischemic attack (TIA), and cerebral infarction without residual deficits; R33.9 Retention of urine, unspecified
CPT/HCPCS: 36415; 70450; 70553; 71046; 80048; 80053; 80061; 81001; 82274; 82607; 82728; 82746; 83540; 83550; 83735; 84153; 84443; 84484; 85014; 85018; 85025; 85027; 87086; 87088; 93005; 93306; 93880; 93976; 96361; 96365; 96375; 96376; 99285; A9270; A9577; G0378; J0360; J0696; J2405; J7030; J7120